=== PATIENT | male | born 1965 | race African-American/Black ===

== ENCOUNTER 2017-10-27 14:22 | Emergency (ER) | payer OTHER ==
[~2017-10-27] VITALS: Ht 185.4 cm; Wt 109.1 kg
[2017-10-27] MEDS ORDERED: IBUPROFEN 600 MG TABLET PO ONE (15:15)
[2017-10-27] MEDS ORDERED: TERBINAFINE HCL 1% 30 GM CREAM TP ONE (15:15)
[2017-10-27 17:07] VITALS: BP 132/84
== END 2017-10-27 17:08 | disposition home or self-care (01) ==
LOC: EMS 14:23
DX: L84 Corns and callosities (principal); F99 Mental disorder, not otherwise specified; J45.909 Unspecified asthma, uncomplicated
CPT/HCPCS: 99283

== ENCOUNTER 2017-11-13 09:36 | Inpatient (IN) | payer MEDICAID, OTHER ==
[~2017-11-13] VITALS: Ht 185.4 cm; Wt 88.1 kg
[2017-11-13 10:25] LABS: AMPHET/METH SCREEN,URINE NEGATIVE (NEGATIVE); BARBITURATE SCREEN, URINE NEGATIVE (NEGATIVE); BENZODIAZEPINES SCREEN,URINE NEGATIVE (NEGATIVE); CANNABINOID SCREEN,URINE NEGATIVE (NEGATIVE); COCAINE SCREEN,URINE NEGATIVE (NEGATIVE); METHADONE SCREEN, URINE NEGATIVE (NEGATIVE); OPIATE SCREEN,URINE NEGATIVE (NEGATIVE); PHENCYCLIDINE SCREEN,URINE NEGATIVE (NEGATIVE)
[2017-11-13] MEDS ORDERED: LORazepam 2 MG TABLET PO ONE (11:15)
[2017-11-13] MEDS ORDERED: HALOPERIDOL 5 MG TABLET PO ONE (11:15)
[2017-11-13] MEDS: DiphenhydrAMINE HCL 50 MG CAPSULE PO ONE ×2 (11:31→11:38)
[2017-11-13] MEDS ORDERED: ZOLPIDEM TARTRATE 10 MG TABLET PO PRN (11:45)
[2017-11-13 15:58] LABS: APPEARANCE,URINE CLEAR (CLEAR)
[2017-11-13 16:00] LABS: BILIRUBIN,URINE NEGATIVE (NEGATIVE); GLUCOSE, URINE (UA) >=1000 mg/dL (NEGATIVE); KETONES,URINE NEGATIVE (NEGATIVE); OCCULT BLOOD,URINE NEGATIVE (NEGATIVE); PROTEIN,URINE NEGATIVE (NEGATIVE)
[2017-11-13 16:01] LABS: LEUKOCYTE ESTERASE ,URINE NEGATIVE (NEGATIVE); NITRATE,URINE NEGATIVE (NEGATIVE); UROBILINOGEN,URINE 0.2 mg/dL (<=1.0)
[2017-11-13 16:27] LABS: BACTERIA,URINE Rare /HPF (None Seen); RBC,URINE None Seen /HPF (0-2); SQUAMOUS EPITHELIAL CELL,UR Few /LPF (None Seen); WBC,URINE 0-2 /HPF (0-5)
[2017-11-13 17:48] VITALS: BP 122/65
[2017-11-13] MEDS ORDERED: INFLUENZA VIRUS VACCINE QVS 2017-18 (3YR+)/PF 60 MCG/0.5 ML SYRINGE IM ONE (19:15)
[2017-11-14 08:30] VITALS: BP 110/69
[2017-11-14] MEDS ORDERED: INSULIN LISPRO 100 UNITS/ML SQ PRN (08:30)
[2017-11-14] MEDS ORDERED: BENZOCAINE/MENTHOL LOZENGE MM PRN (08:30)
[2017-11-14] MEDS ORDERED: CloNIDine HCL 0.1 MG TABLET PO PRN (08:30)
[2017-11-14] MEDS ORDERED: ALBUTEROL SULFATE HFA 90 MCG/PUFF 8 GM INHALER IH PRN (08:30)
[2017-11-14] MEDS ORDERED: MAGNESIUM HYDROXIDE SUSPENSION 30 ML UDCUP PO PRN (08:30)
[2017-11-14] MEDS ORDERED: IBUPROFEN 600 MG TABLET PO PRN (08:30)
[2017-11-14] MEDS ORDERED: DEXTROSE 50%-WATER 25 GM/50 ML SYRINGE IVP PRN (08:30)
[2017-11-14] MEDS ORDERED: ONDANSETRON HCL 4 MG TABLET PO PRN (08:30)
[2017-11-14] MEDS ORDERED: LOPERAMIDE HCL 2 MG CAPSULE PO PRN (08:30)
[2017-11-14] MEDS ORDERED: BACITRACIN 28.4 GM OINTMENT TP PRN (08:30)
[2017-11-14] MEDS ORDERED: ACETAMINOPHEN 325 MG TABLET PO PRN (08:30)
[2017-11-14] MEDS ORDERED: PETROLATUM,WHITE 71 GM JELLY TP PRN (08:30)
[2017-11-14] MEDS ORDERED: MAG HYDROX/AL HYDROX/SIMETH ES 30 ML SUSPENSION UDCUP PO PRN (08:30)
[2017-11-14] MEDS: DOCUSATE SODIUM 100 MG CAPSULE PO SCH (09:16)
[2017-11-14] MEDS: OMEPRAZOLE 20 MG CAPSULE PO SCH (09:17)
[2017-11-14 17:15] VITALS: BP 128/85
[2017-11-14] MEDS: OLANZapine 5 MG TABLET PO SCH (20:31)
[2017-11-14] MEDS: LORazepam 2 MG TABLET PO PRN ×2 (20:37→21:38)
[2017-11-14] MEDS: HALOPERIDOL 5 MG TABLET PO PRN (21:38)
[2017-11-15 08:12] VITALS: BP 137/88
[2017-11-15] MEDS: DOCUSATE SODIUM 100 MG CAPSULE PO SCH (09:00)
[2017-11-15] MEDS: OLANZapine 5 MG TABLET PO SCH ×2 (09:04→20:37)
[2017-11-15] MEDS: OMEPRAZOLE 20 MG CAPSULE PO SCH (09:04)
[2017-11-15] MEDS ORDERED: HALOPERIDOL LACTATE 5 MG/ML VIAL IM PRN (13:45)
[2017-11-15] MEDS: LORazepam 2 MG TABLET PO PRN ×2 (15:26→19:21)
[2017-11-15] MEDS: HALOPERIDOL 5 MG TABLET PO PRN ×2 (15:26→19:21)
[2017-11-15] MEDS: GuaiFENesin/D-METHORPHAN [SUGAR-FREE] 200-20MG/10 ML SYRUP UDCUP PO SCH (15:27)
[2017-11-15 16:00] VITALS: BP 133/71
[2017-11-16] MEDS: GuaiFENesin/D-METHORPHAN [SUGAR-FREE] 200-20MG/10 ML SYRUP UDCUP PO SCH ×3 (00:05→16:11)
[2017-11-16 08:15] VITALS: BP 120/62
[2017-11-16] MEDS: DOCUSATE SODIUM 100 MG CAPSULE PO SCH (09:00)
[2017-11-16] MEDS: OMEPRAZOLE 20 MG CAPSULE PO SCH (09:13)
[2017-11-16] MEDS: OLANZapine 5 MG TABLET PO SCH ×2 (09:13→20:10)
[2017-11-16] MEDS ORDERED: TUBERCULIN, PURIFIED PROTEIN DERIVATIVE 5 TU/0.1 ML SYG ID ONE ×2 (15:30→15:45)
[2017-11-16 16:22] LABS: GLUCOMETER DEV NAME(LOC) 3EC; GLUCOSE,POINT OF CARE 357 MG/DL (70-110)
[2017-11-17 08:00] VITALS: BP 134/67
[2017-11-17] MEDS: GuaiFENesin/D-METHORPHAN [SUGAR-FREE] 200-20MG/10 ML SYRUP UDCUP PO SCH ×4 (08:29→23:48)
[2017-11-17] MEDS: DOCUSATE SODIUM 100 MG CAPSULE PO SCH ×2 (08:30→09:00)
[2017-11-17] MEDS: OLANZapine 5 MG TABLET PO SCH (08:30)
[2017-11-17] MEDS: OMEPRAZOLE 20 MG CAPSULE PO SCH (08:30)
[2017-11-17] MEDS ORDERED: OLANZapine 7.5 MG TABLET PO ONE (09:30)
[2017-11-17] MEDS: BENZTROPINE MESYLATE 1 MG TABLET PO SCH ×2 (09:30→20:23)
[2017-11-17] MEDS: OLANZapine 10 MG TABLET PO SCH (20:24)
[2017-11-18 09:00] VITALS: BP 120/75
[2017-11-18] MEDS: OMEPRAZOLE 20 MG CAPSULE PO SCH (10:00)
[2017-11-18] MEDS: BENZTROPINE MESYLATE 1 MG TABLET PO SCH ×2 (10:00→20:11)
[2017-11-18] MEDS: OLANZapine 10 MG TABLET PO SCH ×2 (10:01→20:11)
[2017-11-18] MEDS: DOCUSATE SODIUM 100 MG CAPSULE PO SCH (10:01)
[2017-11-18] MEDS: GuaiFENesin/D-METHORPHAN [SUGAR-FREE] 200-20MG/10 ML SYRUP UDCUP PO SCH ×2 (10:02→16:13)
[2017-11-18 16:47] VITALS: BP 131/77
[2017-11-19] MEDS: GuaiFENesin/D-METHORPHAN [SUGAR-FREE] 200-20MG/10 ML SYRUP UDCUP PO SCH ×3 (00:05→16:17)
[2017-11-19 08:21] VITALS: BP 155/83
[2017-11-19] MEDS: OMEPRAZOLE 20 MG CAPSULE PO SCH (10:02)
[2017-11-19] MEDS: BENZTROPINE MESYLATE 1 MG TABLET PO SCH ×2 (10:02→20:26)
[2017-11-19] MEDS: DOCUSATE SODIUM 100 MG CAPSULE PO SCH (10:03)
[2017-11-19] MEDS: OLANZapine 10 MG TABLET PO SCH ×2 (10:03→20:25)
[2017-11-19] MEDS ORDERED: DEXTROSE 50%-WATER 25 GM/50 ML SYRINGE IVP PRN (18:45)
[2017-11-19 21:40] VITALS: BP 142/85
[2017-11-20] MEDS: GuaiFENesin/D-METHORPHAN [SUGAR-FREE] 200-20MG/10 ML SYRUP UDCUP PO SCH ×3 (00:09→17:06)
[2017-11-20 08:22] LABS: BASOPHILS % (AUTO) 0.3 % (0.0-2.0); HEMATOCRIT 51.6 % (41-53); LYMPHOCYTES # (AUTO) 3.6 K/uL (1.0-4.8); LYMPHOCYTES % (AUTO) 40.5 % (22.0-44.0); MEAN CORPUSCULAR HEMOGLOBIN 26.9 pg (26.0-34.0); MEAN CORPUSCULAR HGB CONC 32.9 G/dL (31.0-37.0); MEAN CORPUSCULAR VOLUME 82 fL (80-100); MONOCYTES # (AUTO) 0.8 K/uL (0.1-1.0); MONOCYTES % (AUTO) 8.9 % (2.0-9.0); NEUTROPHILS # (AUTO) 4.4 K/uL (1.8-7.7); NEUTROPHILS % (AUTO) 49.3 % (40.0-70.0); PLATELET COUNT (AUTO) 153 K/uL (150-450); RED BLOOD CELL COUNT(AUTO) 6.31 MIL/uL (4.50-5.90); RED CELL DISTRIBUTION WIDTH 12.9 % (11.5-14.5)
[2017-11-20 08:23] LABS: ALANINE AMINOTRANSFERASE 60 U/L (12-78); ALBUMIN 3.4 g/dL (3.4-5.0); ALKALINE PHOSPHATASE 119 U/L (46-116); ANION GAP 10 mmol/L (8-16); ASPARTATE AMINOTRANSFERASE 41 U/L (15-37); BILIRUBIN,TOTAL 0.6 mg/dL (0.1-1.0); CALCIUM, TOTAL 9.1 mg/dL (8.8-10.5); CARBON DIOXIDE 26 mmol/L (22-29); CHLORIDE 94 mmol/L (98-107); CREATININE 0.86 mg/dL (0.60-1.30); GLOMERULAR FILTR. RATE CALC > 60 mL/min (>60); GLUCOSE,RANDOM 275 mg/dL (70-110); PHOSPHORUS 3.5 mg/dL (2.5-4.9); POTASSIUM 4.3 mmol/L (3.5-5.1); SODIUM SERUM 130 mmol/L (136-145); TOTAL PROTEIN, SERUM 8.5 g/dL (6.4-8.2); UREA NITROGEN, BLOOD 18 mg/dL (7-18)
[2017-11-20 08:30] VITALS: BP 133/101
[2017-11-20] MEDS: OMEPRAZOLE 20 MG CAPSULE PO SCH ×2 (09:00→09:25)
[2017-11-20] MEDS: BENZTROPINE MESYLATE 1 MG TABLET PO SCH ×3 (09:00→21:27)
[2017-11-20] MEDS: DOCUSATE SODIUM 100 MG CAPSULE PO SCH ×2 (09:00→09:25)
[2017-11-20] MEDS: OLANZapine 10 MG TABLET PO SCH ×2 (09:25→21:28)
[2017-11-20 09:32] LABS: HEMOGLOBIN A1C 11.1 % (4.5-6.2)
[2017-11-20] MEDS: SODIUM CHLORIDE 1 GM TABLET PO SCH ×2 (11:16→17:05)
[2017-11-20 16:00] VITALS: BP 136/82
[2017-11-21 08:00] VITALS: BP 122/67
[2017-11-21] MEDS: BENZTROPINE MESYLATE 1 MG TABLET PO SCH ×3 (09:00→20:13)
[2017-11-21] MEDS: OMEPRAZOLE 20 MG CAPSULE PO SCH ×2 (09:00→09:56)
[2017-11-21] MEDS: DOCUSATE SODIUM 100 MG CAPSULE PO SCH ×2 (09:00→09:56)
[2017-11-21] MEDS: OLANZapine 10 MG TABLET PO SCH ×3 (09:00→11:41)
[2017-11-21] MEDS: SODIUM CHLORIDE 1 GM TABLET PO SCH ×2 (09:55→17:38)
[2017-11-21] MEDS: INSULIN LISPRO 100 UNITS/ML SQ PRN (13:54)
[2017-11-21 16:29] VITALS: BP 125/74
[2017-11-22] MEDS: OMEPRAZOLE 20 MG CAPSULE PO SCH (08:57)
[2017-11-22] MEDS: BENZTROPINE MESYLATE 1 MG TABLET PO SCH ×2 (08:57→21:06)
[2017-11-22] MEDS: SODIUM CHLORIDE 1 GM TABLET PO SCH ×2 (08:57→16:49)
[2017-11-22] MEDS: OLANZapine 10 MG TABLET PO SCH ×2 (08:58→21:05)
[2017-11-22] MEDS: DOCUSATE SODIUM 100 MG CAPSULE PO SCH (09:00)
[2017-11-22 10:41] VITALS: BP 141/86
[2017-11-22] MEDS: INSULIN LISPRO 100 UNITS/ML SQ PRN (13:11)
[2017-11-22 16:27] VITALS: BP 123/71
[2017-11-22] MEDS: MetFORMIN HCL 500 MG TABLET PO SCH (17:30)
[2017-11-23] MEDS: MetFORMIN HCL 500 MG TABLET PO SCH ×2 (07:10→16:05)
[2017-11-23] MEDS: BENZTROPINE MESYLATE 1 MG TABLET PO SCH ×2 (08:37→21:31)
[2017-11-23] MEDS: OMEPRAZOLE 20 MG CAPSULE PO SCH (08:37)
[2017-11-23] MEDS: OLANZapine 10 MG TABLET PO SCH ×2 (08:38→21:31)
[2017-11-23] MEDS: SODIUM CHLORIDE 1 GM TABLET PO SCH (08:38)
[2017-11-23 08:46] VITALS: BP 121/76
[2017-11-23] MEDS: DOCUSATE SODIUM 100 MG CAPSULE PO SCH (09:00)
[2017-11-23] MEDS: HALOPERIDOL 5 MG TABLET PO PRN (09:28)
[2017-11-23] MEDS: LORazepam 2 MG TABLET PO PRN (09:28)
[2017-11-23 11:53] LABS: GLUCOMETER DEV NAME(LOC) 3EC; GLUCOSE,POINT OF CARE 435 MG/DL (70-110)
[2017-11-23] MEDS: INSULIN LISPRO 100 UNITS/ML SQ PRN (12:11)
[2017-11-23] MEDS ORDERED: INSULIN LISPRO 100 UNITS/ML SQ ONE (12:15)
[2017-11-23 16:00] VITALS: BP 122/78
[2017-11-24 06:42] LABS: GLUCOMETER DEV NAME(LOC) 3EC; GLUCOSE,POINT OF CARE 268 MG/DL (70-110)
[2017-11-24] MEDS: MetFORMIN HCL 500 MG TABLET PO SCH ×2 (06:58→17:40)
[2017-11-24] MEDS: INSULIN LISPRO 100 UNITS/ML SQ PRN ×4 (07:04→20:40)
[2017-11-24] MEDS: HALOPERIDOL 5 MG TABLET PO PRN (08:05)
[2017-11-24] MEDS: BENZTROPINE MESYLATE 1 MG TABLET PO SCH ×2 (08:05→20:19)
[2017-11-24] MEDS: DOCUSATE SODIUM 100 MG CAPSULE PO SCH (08:05)
[2017-11-24] MEDS: LORazepam 2 MG TABLET PO PRN (08:05)
[2017-11-24] MEDS: OMEPRAZOLE 20 MG CAPSULE PO SCH (08:05)
[2017-11-24] MEDS: OLANZapine 10 MG TABLET PO SCH ×2 (08:05→20:19)
[2017-11-24 08:51] VITALS: BP 131/80
[2017-11-24 11:48] LABS: GLUCOMETER DEV NAME(LOC) 3EC; GLUCOSE,POINT OF CARE 397 MG/DL (70-110)
[2017-11-24 17:32] LABS: GLUCOMETER DEV NAME(LOC) 3EC; GLUCOSE,POINT OF CARE 228 MG/DL (70-110)
[2017-11-24 20:18] LABS: GLUCOMETER DEV NAME(LOC) 3EC; GLUCOSE,POINT OF CARE 279 MG/DL (70-110)
[2017-11-24 21:27] VITALS: BP 141/85
[2017-11-25] MEDS: MetFORMIN HCL 500 MG TABLET PO SCH ×2 (06:47→17:44)
[2017-11-25] MEDS: HALOPERIDOL 5 MG TABLET PO PRN (07:38)
[2017-11-25] MEDS: DOCUSATE SODIUM 100 MG CAPSULE PO SCH (07:39)
[2017-11-25] MEDS: OMEPRAZOLE 20 MG CAPSULE PO SCH (07:39)
[2017-11-25] MEDS: OLANZapine 10 MG TABLET PO SCH ×2 (07:39→20:36)
[2017-11-25] MEDS: BENZTROPINE MESYLATE 1 MG TABLET PO SCH ×2 (07:40→20:34)
[2017-11-25 08:06] VITALS: BP 125/82
[2017-11-25] MEDS: INSULIN LISPRO 100 UNITS/ML SQ PRN (12:25)
[2017-11-25 12:27] LABS: GLUCOMETER DEV NAME(LOC) 3EC; GLUCOSE,POINT OF CARE 318 MG/DL (70-110)
[2017-11-25 18:17] VITALS: BP 132/79
[2017-11-25 20:42] LABS: GLUCOMETER DEV NAME(LOC) 3EC; GLUCOSE,POINT OF CARE 275 MG/DL (70-110)
[2017-11-26] MEDS: MetFORMIN HCL 500 MG TABLET PO SCH ×2 (06:48→17:41)
[2017-11-26 08:26] VITALS: BP 109/70
[2017-11-26] MEDS: BENZTROPINE MESYLATE 1 MG TABLET PO SCH ×2 (09:02→20:07)
[2017-11-26] MEDS: DOCUSATE SODIUM 100 MG CAPSULE PO SCH (09:02)
[2017-11-26] MEDS: OLANZapine 10 MG TABLET PO SCH ×2 (09:02→20:07)
[2017-11-26] MEDS: OMEPRAZOLE 20 MG CAPSULE PO SCH (09:03)
[2017-11-26 11:22] LABS: GLUCOMETER DEV NAME(LOC) 3EC; GLUCOSE,POINT OF CARE 322 MG/DL (70-110)
[2017-11-26] MEDS: INSULIN LISPRO 100 UNITS/ML SQ PRN ×3 (11:35→21:28)
[2017-11-26 15:57] LABS: GLUCOMETER DEV NAME(LOC) 3EC; GLUCOSE,POINT OF CARE 316 MG/DL (70-110)
[2017-11-26 16:30] VITALS: BP 133/79
[2017-11-26 20:03] LABS: GLUCOMETER DEV NAME(LOC) 3EC; GLUCOSE,POINT OF CARE 280 MG/DL (70-110)
[2017-11-27 06:12] LABS: GLUCOMETER DEV NAME(LOC) 3EC; GLUCOSE,POINT OF CARE 304 MG/DL (70-110)
[2017-11-27] MEDS: MetFORMIN HCL 500 MG TABLET PO SCH ×2 (07:04→17:24)
[2017-11-27] MEDS: INSULIN LISPRO 100 UNITS/ML SQ PRN ×4 (07:05→22:16)
[2017-11-27] MEDS: BENZTROPINE MESYLATE 1 MG TABLET PO SCH ×2 (08:48→22:13)
[2017-11-27] MEDS: OMEPRAZOLE 20 MG CAPSULE PO SCH (08:48)
[2017-11-27] MEDS: OLANZapine 10 MG TABLET PO SCH ×2 (08:48→22:13)
[2017-11-27] MEDS: DOCUSATE SODIUM 100 MG CAPSULE PO SCH (08:48)
[2017-11-27 09:03] VITALS: BP 128/79
[2017-11-27 13:37] LABS: GLUCOMETER DEV NAME(LOC) 3EI B; GLUCOSE,POINT OF CARE 369 MG/DL (70-110)
[2017-11-27 18:44] LABS: GLUCOMETER DEV NAME(LOC) 3EI B; GLUCOSE,POINT OF CARE 298 MG/DL (70-110)
[2017-11-27 22:19] LABS: GLUCOMETER DEV NAME(LOC) 3EC; GLUCOSE,POINT OF CARE 283 MG/DL (70-110)
[2017-11-28] MEDS: MetFORMIN HCL 500 MG TABLET PO SCH ×2 (07:05→17:29)
[2017-11-28 08:05] VITALS: BP 126/69
[2017-11-28] MEDS: BENZTROPINE MESYLATE 1 MG TABLET PO SCH ×2 (08:26→20:06)
[2017-11-28] MEDS: DOCUSATE SODIUM 100 MG CAPSULE PO SCH ×2 (08:26→08:28)
[2017-11-28] MEDS: OMEPRAZOLE 20 MG CAPSULE PO SCH (08:26)
[2017-11-28] MEDS: OLANZapine 10 MG TABLET PO SCH ×2 (08:27→20:06)
[2017-11-28 11:37] LABS: GLUCOMETER DEV NAME(LOC) 3EC; GLUCOSE,POINT OF CARE 281 MG/DL (70-110)
[2017-11-28 11:53] LABS: GLUCOMETER DEV NAME(LOC) 3EC; GLUCOSE,POINT OF CARE 92 MG/DL (70-110)
[2017-11-28] MEDS: INSULIN LISPRO 100 UNITS/ML SQ PRN ×3 (11:56→22:10)
[2017-11-28 17:37] LABS: GLUCOMETER DEV NAME(LOC) 3EC; GLUCOSE,POINT OF CARE 343 MG/DL (70-110)
[2017-11-28 19:14] VITALS: BP 124/75
[2017-11-28 20:17] LABS: GLUCOMETER DEV NAME(LOC) 3EC; GLUCOSE,POINT OF CARE 331 MG/DL (70-110)
[2017-11-29] MEDS: MetFORMIN HCL 500 MG TABLET PO SCH ×2 (06:59→17:27)
[2017-11-29 08:30] VITALS: BP 123/78
[2017-11-29] MEDS: OLANZapine 10 MG TABLET PO SCH ×2 (08:46→20:30)
[2017-11-29] MEDS: DOCUSATE SODIUM 100 MG CAPSULE PO SCH ×2 (08:46→08:49)
[2017-11-29] MEDS: BENZTROPINE MESYLATE 1 MG TABLET PO SCH ×2 (08:46→20:30)
[2017-11-29] MEDS: OMEPRAZOLE 20 MG CAPSULE PO SCH (08:46)
[2017-11-29 11:22] LABS: GLUCOMETER DEV NAME(LOC) 3EC; GLUCOSE,POINT OF CARE 246 MG/DL (70-110)
[2017-11-29] MEDS: INSULIN LISPRO 100 UNITS/ML SQ PRN ×2 (11:41→17:34)
[2017-11-29 16:37] VITALS: BP 123/75
[2017-11-29 17:37] LABS: GLUCOMETER DEV NAME(LOC) 3EC; GLUCOSE,POINT OF CARE 274 MG/DL (70-110)
[2017-11-29 20:17] LABS: GLUCOMETER DEV NAME(LOC) 3EC; GLUCOSE,POINT OF CARE 110 MG/DL (70-110)
[2017-11-30 06:22] LABS: GLUCOMETER DEV NAME(LOC) 3EC; GLUCOSE,POINT OF CARE 223 MG/DL (70-110)
[2017-11-30] MEDS: INSULIN LISPRO 100 UNITS/ML SQ PRN ×4 (07:00→21:30)
[2017-11-30] MEDS: MetFORMIN HCL 500 MG TABLET PO SCH ×2 (07:01→17:44)
[2017-11-30 08:33] VITALS: BP 133/76
[2017-11-30] MEDS: BENZTROPINE MESYLATE 1 MG TABLET PO SCH ×2 (08:54→20:25)
[2017-11-30] MEDS: OMEPRAZOLE 20 MG CAPSULE PO SCH (08:54)
[2017-11-30] MEDS: OLANZapine 10 MG TABLET PO SCH ×2 (08:54→20:26)
[2017-11-30] MEDS: DOCUSATE SODIUM 100 MG CAPSULE PO SCH (09:00)
[2017-11-30 11:27] LABS: GLUCOMETER DEV NAME(LOC) 3EC; GLUCOSE,POINT OF CARE 248 MG/DL (70-110)
[2017-11-30 16:00] VITALS: BP 126/76
[2017-11-30 17:42] LABS: GLUCOMETER DEV NAME(LOC) 3EC; GLUCOSE,POINT OF CARE 287 MG/DL (70-110)
[2017-11-30 20:34] LABS: GLUCOMETER DEV NAME(LOC) 3EC; GLUCOSE,POINT OF CARE 340 MG/DL (70-110)
[2017-12-01] MEDS: MetFORMIN HCL 500 MG TABLET PO SCH ×2 (06:43→18:04)
[2017-12-01] MEDS: OLANZapine 10 MG TABLET PO SCH ×2 (08:50→20:35)
[2017-12-01] MEDS: DOCUSATE SODIUM 100 MG CAPSULE PO SCH (08:51)
[2017-12-01] MEDS: OMEPRAZOLE 20 MG CAPSULE PO SCH (08:51)
[2017-12-01] MEDS: BENZTROPINE MESYLATE 1 MG TABLET PO SCH ×2 (08:51→20:34)
[2017-12-01 10:48] VITALS: BP 103/63
[2017-12-01 11:17] LABS: GLUCOMETER DEV NAME(LOC) 3EC; GLUCOSE,POINT OF CARE 313 MG/DL (70-110)
[2017-12-01] MEDS: INSULIN LISPRO 100 UNITS/ML SQ PRN ×3 (11:41→21:32)
[2017-12-01 16:44] VITALS: BP 130/78
[2017-12-01 17:18] LABS: GLUCOMETER DEV NAME(LOC) 3EC; GLUCOSE,POINT OF CARE 249 MG/DL (70-110)
[2017-12-01 20:57] LABS: GLUCOMETER DEV NAME(LOC) 3EC; GLUCOSE,POINT OF CARE 314 MG/DL (70-110)
[2017-12-02 06:22] LABS: GLUCOMETER DEV NAME(LOC) 3EC; GLUCOSE,POINT OF CARE 266 MG/DL (70-110)
[2017-12-02] MEDS: MetFORMIN HCL 500 MG TABLET PO SCH ×2 (07:04→17:19)
[2017-12-02] MEDS: INSULIN LISPRO 100 UNITS/ML SQ PRN ×4 (07:10→21:32)
[2017-12-02 08:05] VITALS: BP 109/73
[2017-12-02] MEDS: BENZTROPINE MESYLATE 1 MG TABLET PO SCH ×2 (09:24→20:53)
[2017-12-02] MEDS: OMEPRAZOLE 20 MG CAPSULE PO SCH (09:24)
[2017-12-02] MEDS: OLANZapine 10 MG TABLET PO SCH ×2 (09:24→20:53)
[2017-12-02 11:12] LABS: GLUCOMETER DEV NAME(LOC) 3EC; GLUCOSE,POINT OF CARE 191 MG/DL (70-110)
[2017-12-02 17:27] LABS: GLUCOMETER DEV NAME(LOC) 3EC; GLUCOSE,POINT OF CARE 202 MG/DL (70-110)
[2017-12-02 20:42] LABS: GLUCOMETER DEV NAME(LOC) 3EC; GLUCOSE,POINT OF CARE 317 MG/DL (70-110)
[2017-12-03 06:37] LABS: GLUCOMETER DEV NAME(LOC) 3EC; GLUCOSE,POINT OF CARE 208 MG/DL (70-110)
[2017-12-03] MEDS: MetFORMIN HCL 500 MG TABLET PO SCH ×2 (06:52→17:48)
[2017-12-03] MEDS: INSULIN LISPRO 100 UNITS/ML SQ PRN ×4 (06:56→22:09)
[2017-12-03] MEDS: OMEPRAZOLE 20 MG CAPSULE PO SCH (07:53)
[2017-12-03] MEDS: OLANZapine 10 MG TABLET PO SCH ×2 (07:53→20:24)
[2017-12-03] MEDS: BENZTROPINE MESYLATE 1 MG TABLET PO SCH ×2 (07:53→20:24)
[2017-12-03 08:00] VITALS: BP_SYST 102; BP_SYST 118; BP_DIAS 66; BP_DIAS 80
[2017-12-03 11:38] LABS: GLUCOMETER DEV NAME(LOC) 3EC; GLUCOSE,POINT OF CARE 205 MG/DL (70-110)
[2017-12-03 16:59] VITALS: BP 108/78
[2017-12-03 17:37] LABS: GLUCOMETER DEV NAME(LOC) 3EC; GLUCOSE,POINT OF CARE 167 MG/DL (70-110)
[2017-12-03 20:43] LABS: GLUCOMETER DEV NAME(LOC) 3EC; GLUCOSE,POINT OF CARE 217 MG/DL (70-110)
[2017-12-04 06:28] LABS: GLUCOMETER DEV NAME(LOC) 3EC; GLUCOSE,POINT OF CARE 232 MG/DL (70-110)
[2017-12-04] MEDS: INSULIN LISPRO 100 UNITS/ML SQ PRN ×4 (07:06→21:43)
[2017-12-04] MEDS: MetFORMIN HCL 500 MG TABLET PO SCH ×2 (07:06→17:37)
[2017-12-04 08:31] VITALS: BP 110/61
[2017-12-04] MEDS: OMEPRAZOLE 20 MG CAPSULE PO SCH (10:25)
[2017-12-04] MEDS: BENZTROPINE MESYLATE 1 MG TABLET PO SCH ×2 (10:25→21:32)
[2017-12-04] MEDS: OLANZapine 10 MG TABLET PO SCH ×2 (10:25→21:32)
[2017-12-04 12:02] LABS: GLUCOMETER DEV NAME(LOC) 3EC; GLUCOSE,POINT OF CARE 247 MG/DL (70-110)
[2017-12-04 16:00] VITALS: BP 123/82
[2017-12-04 17:47] LABS: GLUCOMETER DEV NAME(LOC) 3EC; GLUCOSE,POINT OF CARE 247 MG/DL (70-110)
[2017-12-04 21:42] LABS: GLUCOMETER DEV NAME(LOC) 3EC; GLUCOSE,POINT OF CARE 234 MG/DL (70-110)
[2017-12-05] MEDS: MetFORMIN HCL 500 MG TABLET PO SCH ×2 (07:01→17:24)
[2017-12-05] MEDS: OMEPRAZOLE 20 MG CAPSULE PO SCH (08:05)
[2017-12-05] MEDS: OLANZapine 10 MG TABLET PO SCH ×2 (08:05→21:09)
[2017-12-05] MEDS: BENZTROPINE MESYLATE 1 MG TABLET PO SCH ×2 (08:05→21:09)
[2017-12-05 08:26] VITALS: BP 126/92
[2017-12-05 11:48] LABS: GLUCOMETER DEV NAME(LOC) 3EC; GLUCOSE,POINT OF CARE 249 MG/DL (70-110)
[2017-12-05] MEDS: INSULIN LISPRO 100 UNITS/ML SQ PRN ×3 (12:21→22:07)
[2017-12-05 17:38] LABS: GLUCOMETER DEV NAME(LOC) 3EC; GLUCOSE,POINT OF CARE 188 MG/DL (70-110)
[2017-12-05 19:47] VITALS: BP 125/73
[2017-12-05 21:17] LABS: GLUCOMETER DEV NAME(LOC) 3EC; GLUCOSE,POINT OF CARE 255 MG/DL (70-110)
[2017-12-06 06:17] LABS: GLUCOMETER DEV NAME(LOC) 3EC; GLUCOSE,POINT OF CARE 177 MG/DL (70-110)
[2017-12-06] MEDS: MetFORMIN HCL 500 MG TABLET PO SCH ×2 (07:08→17:48)
[2017-12-06] MEDS: INSULIN LISPRO 100 UNITS/ML SQ PRN ×4 (07:09→21:40)
[2017-12-06] MEDS: OMEPRAZOLE 20 MG CAPSULE PO SCH (08:31)
[2017-12-06] MEDS: BENZTROPINE MESYLATE 1 MG TABLET PO SCH ×2 (08:31→21:17)
[2017-12-06] MEDS: OLANZapine 10 MG TABLET PO SCH ×2 (08:32→21:16)
[2017-12-06 09:00] VITALS: BP 127/81
[2017-12-06 11:42] LABS: GLUCOMETER DEV NAME(LOC) 3EC; GLUCOSE,POINT OF CARE 256 MG/DL (70-110)
[2017-12-06 16:49] VITALS: BP 127/73
[2017-12-06 17:17] LABS: GLUCOMETER DEV NAME(LOC) 3EC; GLUCOSE,POINT OF CARE 219 MG/DL (70-110)
[2017-12-06 21:58] LABS: GLUCOMETER DEV NAME(LOC) 3EC; GLUCOSE,POINT OF CARE 226 MG/DL (70-110)
[2017-12-07] MEDS: MetFORMIN HCL 500 MG TABLET PO SCH ×2 (07:15→17:36)
[2017-12-07] MEDS: INSULIN LISPRO 100 UNITS/ML SQ PRN ×4 (07:17→21:37)
[2017-12-07 07:27] LABS: GLUCOMETER DEV NAME(LOC) 3EC; GLUCOSE,POINT OF CARE 188 MG/DL (70-110)
[2017-12-07] MEDS: BENZTROPINE MESYLATE 1 MG TABLET PO SCH ×2 (07:45→21:32)
[2017-12-07] MEDS: OMEPRAZOLE 20 MG CAPSULE PO SCH (07:45)
[2017-12-07] MEDS: OLANZapine 10 MG TABLET PO SCH ×2 (07:46→21:32)
[2017-12-07 08:00] VITALS: BP 127/78
[2017-12-07 11:58] LABS: GLUCOMETER DEV NAME(LOC) 3EC; GLUCOSE,POINT OF CARE 311 MG/DL (70-110)
[2017-12-07 17:43] LABS: GLUCOMETER DEV NAME(LOC) 3EC; GLUCOSE,POINT OF CARE 218 MG/DL (70-110)
[2017-12-07 22:08] LABS: GLUCOMETER DEV NAME(LOC) 3EC; GLUCOSE,POINT OF CARE 244 MG/DL (70-110)
[2017-12-08 06:23] LABS: GLUCOMETER DEV NAME(LOC) 3EC; GLUCOSE,POINT OF CARE 256 MG/DL (70-110)
[2017-12-08] MEDS: MetFORMIN HCL 500 MG TABLET PO SCH ×2 (06:40→17:04)
[2017-12-08] MEDS: INSULIN LISPRO 100 UNITS/ML SQ PRN ×4 (06:41→20:41)
[2017-12-08 08:00] VITALS: BP 126/75
[2017-12-08] MEDS: OMEPRAZOLE 20 MG CAPSULE PO SCH (10:02)
[2017-12-08] MEDS: DOCUSATE SODIUM 100 MG CAPSULE PO PRN (10:02)
[2017-12-08] MEDS: BENZTROPINE MESYLATE 1 MG TABLET PO SCH ×2 (10:03→20:24)
[2017-12-08] MEDS: OLANZapine 10 MG TABLET PO SCH ×2 (10:03→20:24)
[2017-12-08 11:38] LABS: GLUCOMETER DEV NAME(LOC) 3EC; GLUCOSE,POINT OF CARE 248 MG/DL (70-110)
[2017-12-08 16:47] LABS: GLUCOMETER DEV NAME(LOC) 3EC; GLUCOSE,POINT OF CARE 209 MG/DL (70-110)
[2017-12-08 20:33] LABS: GLUCOMETER DEV NAME(LOC) 3EC; GLUCOSE,POINT OF CARE 212 MG/DL (70-110)
[2017-12-08 22:40] VITALS: BP 128/73
[2017-12-09 06:17] LABS: GLUCOMETER DEV NAME(LOC) 3EC; GLUCOSE,POINT OF CARE 237 MG/DL (70-110)
[2017-12-09] MEDS: MetFORMIN HCL 500 MG TABLET PO SCH ×2 (06:47→17:37)
[2017-12-09] MEDS: INSULIN LISPRO 100 UNITS/ML SQ PRN ×4 (06:48→21:38)
[2017-12-09 08:10] VITALS: BP 131/64
[2017-12-09] MEDS: OMEPRAZOLE 20 MG CAPSULE PO SCH (08:17)
[2017-12-09] MEDS: OLANZapine 10 MG TABLET PO SCH ×2 (08:17→20:10)
[2017-12-09] MEDS: BENZTROPINE MESYLATE 1 MG TABLET PO SCH ×2 (08:17→20:09)
[2017-12-09 11:52] LABS: GLUCOMETER DEV NAME(LOC) 3EC; GLUCOSE,POINT OF CARE 188 MG/DL (70-110)
[2017-12-09 16:00] VITALS: BP 132/68
[2017-12-09 17:43] LABS: GLUCOMETER DEV NAME(LOC) 3EC; GLUCOSE,POINT OF CARE 146 MG/DL (70-110)
[2017-12-09 20:17] LABS: GLUCOMETER DEV NAME(LOC) 3EC; GLUCOSE,POINT OF CARE 205 MG/DL (70-110)
[2017-12-10 06:43] LABS: GLUCOMETER DEV NAME(LOC) 3EC; GLUCOSE,POINT OF CARE 270 MG/DL (70-110)
[2017-12-10] MEDS: MetFORMIN HCL 500 MG TABLET PO SCH ×2 (06:49→17:37)
[2017-12-10] MEDS: INSULIN LISPRO 100 UNITS/ML SQ PRN ×4 (07:02→21:19)
[2017-12-10 08:00] VITALS: BP 132/91
[2017-12-10] MEDS: OMEPRAZOLE 20 MG CAPSULE PO SCH (08:12)
[2017-12-10] MEDS: OLANZapine 10 MG TABLET PO SCH ×2 (08:12→21:03)
[2017-12-10] MEDS: BENZTROPINE MESYLATE 1 MG TABLET PO SCH ×2 (08:12→21:03)
[2017-12-10 11:47] LABS: GLUCOMETER DEV NAME(LOC) 3EC; GLUCOSE,POINT OF CARE 196 MG/DL (70-110)
[2017-12-10] MEDS: GlipiZIDE 10 MG TABLET PO SCH (17:37)
[2017-12-10 17:43] LABS: GLUCOMETER DEV NAME(LOC) 3EC; GLUCOSE,POINT OF CARE 229 MG/DL (70-110)
[2017-12-10 21:18] LABS: GLUCOMETER DEV NAME(LOC) 3EC; GLUCOSE,POINT OF CARE 232 MG/DL (70-110)
[2017-12-11 06:33] LABS: GLUCOMETER DEV NAME(LOC) 3EC; GLUCOSE,POINT OF CARE 195 MG/DL (70-110)
[2017-12-11] MEDS: INSULIN LISPRO 100 UNITS/ML SQ PRN ×4 (06:41→21:04)
[2017-12-11 06:59] LABS: BAND NEUTROPHILS % (MANUAL) 0 % (0-5)
[2017-12-11] MEDS: GlipiZIDE 10 MG TABLET PO SCH ×2 (07:01→17:02)
[2017-12-11] MEDS: MetFORMIN HCL 500 MG TABLET PO SCH ×2 (07:01→17:01)
[2017-12-11 07:13] LABS: HEMATOCRIT 45.9 % (41-53); HEMOGLOBIN 15.1 g/dL (13.5-17.5); MEAN CORPUSCULAR HEMOGLOBIN 26.8 pg (26.0-34.0); MEAN CORPUSCULAR VOLUME 81 fL (80-100); PLATELET COUNT (AUTO) 271 K/uL (150-450); RED BLOOD CELL COUNT(AUTO) 5.65 MIL/uL (4.50-5.90); RED CELL DISTRIBUTION WIDTH 12.7 % (11.5-14.5)
[2017-12-11 07:36] LABS: HEMOGLOBIN A1C 10.6 % (4.5-6.2)
[2017-12-11 07:49] LABS: ANION GAP 6 mmol/L (8-16); CALCIUM, TOTAL 8.7 mg/dL (8.8-10.5); CARBON DIOXIDE 30 mmol/L (22-29); CHLORIDE 99 mmol/L (98-107); CHOL/HDL RATIO 2.9 (4.2-7.3); CHOLESTEROL 93 mg/dL (131-200); CREATININE 0.83 mg/dL (0.60-1.30); GLOMERULAR FILTR. RATE CALC > 60 mL/min (>60); GLUCOSE,RANDOM 181 mg/dL (70-110); HDL CHOLESTEROL 32 mg/dL (40-60); LDL CHOL (CALC.) 33 mg/dL (0-130); PHOSPHORUS 4.2 mg/dL (2.5-4.9); POTASSIUM 4.1 mmol/L (3.5-5.1); SODIUM SERUM 135 mmol/L (136-145); THYROID STIMULATING HORMONE 0.94 uIU/mL (0.36-3.74); TRIGLYCERIDES 138 mg/dL (15-150); UREA NITROGEN, BLOOD 15 mg/dL (7-18)
[2017-12-11 08:00] VITALS: BP 132/79
[2017-12-11] MEDS: OMEPRAZOLE 20 MG CAPSULE PO SCH (08:17)
[2017-12-11] MEDS: BENZTROPINE MESYLATE 1 MG TABLET PO SCH ×2 (08:17→20:39)
[2017-12-11] MEDS: OLANZapine 10 MG TABLET PO SCH ×2 (08:17→20:39)
[2017-12-11 10:07] LABS: LYMPHOCYTES % (MANUAL) 52 % (22-44); MONOCYTES % (MANUAL) 12 % (2-9); SEGMENTED NEUTROPHILS % 36 % (40-70)
[2017-12-11 11:23] LABS: GLUCOMETER DEV NAME(LOC) 3EC; GLUCOSE,POINT OF CARE 314 MG/DL (70-110)
[2017-12-11 17:42] LABS: GLUCOMETER DEV NAME(LOC) 3EC; GLUCOSE,POINT OF CARE 213 MG/DL (70-110)
[2017-12-11] MEDS: SODIUM CHLORIDE 1 GM TABLET PO SCH (20:39)
[2017-12-11 20:48] LABS: GLUCOMETER DEV NAME(LOC) 3EC; GLUCOSE,POINT OF CARE 226 MG/DL (70-110)
[2017-12-12 06:38] LABS: GLUCOMETER DEV NAME(LOC) 3EC; GLUCOSE,POINT OF CARE 171 MG/DL (70-110)
[2017-12-12] MEDS: INSULIN LISPRO 100 UNITS/ML SQ PRN ×5 (06:52→22:05)
[2017-12-12] MEDS: GlipiZIDE 10 MG TABLET PO SCH ×2 (06:53→16:39)
[2017-12-12] MEDS: MetFORMIN HCL 500 MG TABLET PO SCH ×2 (06:54→16:39)
[2017-12-12 08:30] VITALS: BP 127/89
[2017-12-12] MEDS: BENZTROPINE MESYLATE 1 MG TABLET PO SCH ×2 (10:00→21:00)
[2017-12-12] MEDS: OLANZapine 10 MG TABLET PO SCH ×2 (10:00→21:00)
[2017-12-12] MEDS: SODIUM CHLORIDE 1 GM TABLET PO SCH ×2 (10:01→16:39)
[2017-12-12] MEDS: OMEPRAZOLE 20 MG CAPSULE PO SCH (10:01)
[2017-12-12] MEDS: DOCUSATE SODIUM 100 MG CAPSULE PO PRN (10:01)
[2017-12-12] MEDS: MAGNESIUM OXIDE 400 MG TABLET PO SCH (10:01)
[2017-12-12] MEDS: CHOLECALCIFEROL (VIT D3) 1,000 UNITS TABLET PO SCH (10:01)
[2017-12-12 12:17] LABS: GLUCOMETER DEV NAME(LOC) 3EC; GLUCOSE,POINT OF CARE 228 MG/DL (70-110)
[2017-12-12 16:00] VITALS: BP 123/87
[2017-12-12 16:48] LABS: GLUCOMETER DEV NAME(LOC) 3EC; GLUCOSE,POINT OF CARE 200 MG/DL (70-110)
[2017-12-12 21:12] LABS: GLUCOMETER DEV NAME(LOC) 3EC; GLUCOSE,POINT OF CARE 204 MG/DL (70-110)
[2017-12-13 06:12] LABS: GLUCOMETER DEV NAME(LOC) 3EC; GLUCOSE,POINT OF CARE 147 MG/DL (70-110)
[2017-12-13] MEDS: GlipiZIDE 10 MG TABLET PO SCH ×2 (06:56→16:32)
[2017-12-13] MEDS: INSULIN LISPRO 100 UNITS/ML SQ PRN ×4 (06:58→21:10)
[2017-12-13] MEDS: MetFORMIN HCL 500 MG TABLET PO SCH ×2 (06:59→16:32)
[2017-12-13] MEDS: OMEPRAZOLE 20 MG CAPSULE PO SCH (08:33)
[2017-12-13] MEDS: CHOLECALCIFEROL (VIT D3) 1,000 UNITS TABLET PO SCH (08:33)
[2017-12-13] MEDS: OLANZapine 10 MG TABLET PO SCH ×2 (08:33→20:22)
[2017-12-13] MEDS: MAGNESIUM OXIDE 400 MG TABLET PO SCH (08:33)
[2017-12-13] MEDS: BENZTROPINE MESYLATE 1 MG TABLET PO SCH ×2 (08:33→20:22)
[2017-12-13 08:36] VITALS: BP 128/87
[2017-12-13 11:28] LABS: GLUCOMETER DEV NAME(LOC) 3EC; GLUCOSE,POINT OF CARE 151 MG/DL (70-110)
[2017-12-13 16:22] LABS: GLUCOMETER DEV NAME(LOC) 3EC; GLUCOSE,POINT OF CARE 187 MG/DL (70-110)
[2017-12-13 16:42] VITALS: BP 148/82
[2017-12-13 20:47] LABS: GLUCOMETER DEV NAME(LOC) 3EC; GLUCOSE,POINT OF CARE 157 MG/DL (70-110)
[2017-12-14 06:23] LABS: GLUCOMETER DEV NAME(LOC) 3EC; GLUCOSE,POINT OF CARE 168 MG/DL (70-110)
[2017-12-14] MEDS: GlipiZIDE 10 MG TABLET PO SCH (06:53)
[2017-12-14] MEDS: INSULIN LISPRO 100 UNITS/ML SQ PRN ×2 (06:56→11:42)
[2017-12-14] MEDS: MetFORMIN HCL 500 MG TABLET PO SCH (06:57)
[2017-12-14] MEDS ORDERED: OLAN10TA20 PO (08:02)
[2017-12-14] MEDS ORDERED: BENZ1TAB10 PO (08:02)
[2017-12-14] MEDS: OMEPRAZOLE 20 MG CAPSULE PO SCH (08:13)
[2017-12-14] MEDS: CHOLECALCIFEROL (VIT D3) 1,000 UNITS TABLET PO SCH (08:13)
[2017-12-14] MEDS: OLANZapine 10 MG TABLET PO SCH (08:13)
[2017-12-14] MEDS: BENZTROPINE MESYLATE 1 MG TABLET PO SCH (08:13)
[2017-12-14] MEDS: MAGNESIUM OXIDE 400 MG TABLET PO SCH (08:13)
[2017-12-14 08:19] VITALS: BP 127/82
[2017-12-14 11:43] LABS: GLUCOMETER DEV NAME(LOC) 3EC; GLUCOSE,POINT OF CARE 208 MG/DL (70-110)
[2017-12-14] MEDS ORDERED: VITAD1000 PO (11:54)
[2017-12-14] MEDS ORDERED: GLIP10 PO (11:55)
[2017-12-14] MEDS ORDERED: METF500T6 PO (11:55)
[2017-12-14] MEDS ORDERED: MAGOX PO (11:55)
== END 2017-12-14 14:30 | disposition home or self-care (01) | DRG 750 ==
LOC: EMS 09:36 → 3EI 14:05 → 3EC 11-14 14:23
DX: F20.0 Paranoid schizophrenia (principal); E11.65 Type 2 diabetes mellitus with hyperglycemia; J45.909 Unspecified asthma, uncomplicated; G47.00 Insomnia, unspecified; R45.87 Impulsiveness; E83.42 Hypomagnesemia; E87.1 Hypo-osmolality and hyponatremia; E55.9 Vitamin D deficiency, unspecified; K59.00 Constipation, unspecified; F17.200 Nicotine dependence, unspecified, uncomplicated; Z71.6 Tobacco abuse counseling; Z91.14 Patient's other noncompliance with medication regimen
CPT/HCPCS: 71046; 82306; 83036; 83735; 84100; 84295; 84443; 85007; 87081; 99285; J1815

== ENCOUNTER 2018-02-18 19:41 | Inpatient (IN) | payer MEDICAID, OTHER ==
[~2018-02-18] VITALS: Ht 185.4 cm; Wt 93.0 kg
[~2018-02-18 19:41] MED LIST: BENZ1TAB10 PO; GLIP10 PO; MAGOX PO; METF500T6 PO; OLAN10TA20 PO; VITAD1000 PO
[2018-02-18 20:18] LABS: GLUCOSE,POINT OF CARE 388 MG/DL (70-110)
[2018-02-18 20:51] LABS: AMPHET/METH SCREEN,URINE NEGATIVE (NEGATIVE); BARBITURATE SCREEN, URINE NEGATIVE (NEGATIVE); BENZODIAZEPINES SCREEN,URINE NEGATIVE (NEGATIVE); CANNABINOID SCREEN,URINE NEGATIVE (NEGATIVE); COCAINE SCREEN,URINE NEGATIVE (NEGATIVE); METHADONE SCREEN, URINE NEGATIVE (NEGATIVE); OPIATE SCREEN,URINE NEGATIVE (NEGATIVE); PHENCYCLIDINE SCREEN,URINE NEGATIVE (NEGATIVE)
[2018-02-18] MEDS ORDERED: ACETAMINOPHEN 500 MG TABLET PO ONE (21:30)
[2018-02-18] MEDS ORDERED: GuaiFENesin/D-METHORPHAN [SUGAR-FREE] 200-20MG/10 ML SYRUP UDCUP PO ONE (21:30)
[2018-02-18] MEDS ORDERED: INSULIN REGULAR, HUMAN 100 UNITS/ML SQ ONE (21:45)
[2018-02-18 21:48] LABS: GLUCOSE,POINT OF CARE 307 MG/DL (70-110)
[2018-02-18] MEDS ORDERED: MetFORMIN HCL 500 MG TABLET PO ONE (22:00)
[2018-02-18 23:58] LABS: GLUCOSE,POINT OF CARE 278 MG/DL (70-110)
[2018-02-19 04:33] LABS: GLUCOSE,POINT OF CARE 239 MG/DL (70-110)
[2018-02-19 10:48] LABS: GLUCOSE,POINT OF CARE 295 MG/DL (70-110)
[2018-02-19] MEDS ORDERED: MetFORMIN HCL 500 MG TABLET PO ONE (12:45)
[2018-02-19] MEDS ORDERED: ZOLPIDEM TARTRATE 10 MG TABLET PO PRN (17:30)
[2018-02-19] MEDS ORDERED: LOPERAMIDE HCL 2 MG CAPSULE PO PRN (17:30)
[2018-02-19] MEDS ORDERED: LORazepam 2 MG TABLET PO PRN (17:30)
[2018-02-19] MEDS ORDERED: ACETAMINOPHEN 325 MG TABLET PO PRN (17:30)
[2018-02-19] MEDS ORDERED: TUBERCULIN, PURIFIED PROTEIN DERIVATIVE 5 TU/0.1 ML SYG ID ONE (17:30)
[2018-02-19] MEDS ORDERED: OLANZapine 5 MG RAPDIS TABLET PO PRN (17:30)
[2018-02-19] MEDS ORDERED: GuaiFENesin/D-METHORPHAN [SUGAR-FREE] 200-20MG/10 ML SYRUP UDCUP PO PRN (17:30)
[2018-02-19] MEDS ORDERED: MAGNESIUM HYDROXIDE SUSPENSION 30 ML UDCUP PO PRN (17:30)
[2018-02-19] MEDS ORDERED: PROMETHAZINE HCL 25 MG TABLET PO PRN (17:30)
[2018-02-19] MEDS ORDERED: HydrOXYzine PAMOATE 50 MG CAPSULE PO PRN (17:30)
[2018-02-19] MEDS ORDERED: MAG HYDROX/AL HYDROX/SIMETH ES 30 ML SUSPENSION UDCUP PO PRN (17:30)
[2018-02-19 19:23] LABS: GLUCOSE,POINT OF CARE 222 MG/DL (70-110)
[2018-02-19] MEDS ORDERED: GLUCAGON,HUMAN RECOMBINANT 1 MG VIAL IM PRN (20:45)
[2018-02-19 20:57] VITALS: BP 128/83
[2018-02-19] MEDS ORDERED: OLANZapine 5 MG RAPDIS TABLET PO SCH (21:00)
[2018-02-19] MEDS ORDERED: DIVALPROEX SODIUM 500 MG ER TABLET PO SCH (21:00)
[2018-02-19] MEDS: THIAMINE HCL 100 MG TABLET PO SCH (21:27)
[2018-02-19] MEDS: DIVALPROEX SODIUM 500 MG ER TABLET PO SCH (21:27)
[2018-02-20 00:22] VITALS: BP 139/63
[2018-02-20 06:58] LABS: GLUCOMETER DEV NAME(LOC) BV3N5; GLUCOSE,POINT OF CARE 222 MG/DL (70-110)
[2018-02-20 08:20] VITALS: BP 110/68
[2018-02-20] MEDS: FOLIC ACID 1 MG TABLET PO SCH (09:00)
[2018-02-20] MEDS: NALTREXONE HCL 50 MG TABLET PO SCH (09:00)
[2018-02-20] MEDS: THIAMINE HCL 100 MG TABLET PO SCH ×2 (09:00→16:43)
[2018-02-20] MEDS: MULTIVITAMINS WITH MINERALS, THERAPEUTIC TABLET PO SCH (09:00)
[2018-02-20 11:49] LABS: GLUCOMETER DEV NAME(LOC) BV3N5; GLUCOSE,POINT OF CARE 238 MG/DL (70-110)
[2018-02-20 16:00] VITALS: BP 113/67
[2018-02-20 17:08] LABS: GLUCOMETER DEV NAME(LOC) BV3N5; GLUCOSE,POINT OF CARE 218 MG/DL (70-110)
[2018-02-20] MEDS: OLANZapine 10 MG RAPDIS TABLET PO SCH (20:37)
[2018-02-20] MEDS: DIVALPROEX SODIUM 500 MG ER TABLET PO SCH (20:37)
[2018-02-20 21:23] LABS: GLUCOMETER DEV NAME(LOC) BV3N5; GLUCOSE,POINT OF CARE 261 MG/DL (70-110)
[2018-02-21 06:19] LABS: GLUCOMETER DEV NAME(LOC) BV3N5; GLUCOSE,POINT OF CARE 210 MG/DL (70-110)
[2018-02-21] MEDS: MetFORMIN HCL 500 MG TABLET PO SCH ×2 (06:32→17:09)
[2018-02-21 06:37] VITALS: BP 106/69
[2018-02-21 08:27] VITALS: BP 116/72
[2018-02-21] MEDS: MULTIVITAMINS WITH MINERALS, THERAPEUTIC TABLET PO SCH (08:53)
[2018-02-21] MEDS: THIAMINE HCL 100 MG TABLET PO SCH ×2 (08:53→17:09)
[2018-02-21] MEDS: FOLIC ACID 1 MG TABLET PO SCH (08:53)
[2018-02-21] MEDS: NALTREXONE HCL 50 MG TABLET PO SCH (08:53)
[2018-02-21 08:58] LABS: BASOPHILS % (AUTO) 0.5 % (0.0-2.0); EOSINOPHILS % (AUTO) 0.9 % (1.0-6.0); HEMOGLOBIN 15.5 g/dL (13.5-17.5); LYMPHOCYTES % (AUTO) 46.3 % (22.0-44.0); MEAN CORPUSCULAR HEMOGLOBIN 26.9 pg (26.0-34.0); MEAN CORPUSCULAR VOLUME 82 fL (80-100); MONOCYTES # (AUTO) 0.5 K/uL (0.1-1.0); MONOCYTES % (AUTO) 8.3 % (2.0-9.0); NEUTROPHILS # (AUTO) 2.9 K/uL (1.8-7.7); PLATELET COUNT (AUTO) 266 K/uL (150-450); RED BLOOD CELL COUNT(AUTO) 5.76 MIL/uL (4.50-5.90)
[2018-02-21 09:28] LABS: HEMOGLOBIN A1C 11.6 % (4.5-6.2)
[2018-02-21 09:42] LABS: ANION GAP 11 mmol/L (8-16); CALCIUM, TOTAL 9.1 mg/dL (8.8-10.5); CARBON DIOXIDE 23 mmol/L (22-29); CHLORIDE 101 mmol/L (98-107); CHOL/HDL RATIO 3.1 (4.2-7.3); CHOLESTEROL 89 mg/dL (131-200); GLOMERULAR FILTR. RATE CALC > 60 mL/min (>60); GLUCOSE,RANDOM 317 mg/dL (70-110); HDL CHOLESTEROL 29 mg/dL (40-60); LDL CHOL (CALC.) 36 mg/dL (0-130); PHOSPHORUS 3.6 mg/dL (2.5-4.9); POTASSIUM 4.2 mmol/L (3.5-5.1); SODIUM SERUM 135 mmol/L (136-145); TRIGLYCERIDES 119 mg/dL (15-150); UREA NITROGEN, BLOOD 22 mg/dL (7-18)
[2018-02-21 12:29] LABS: GLUCOMETER DEV NAME(LOC) BV3N5; GLUCOSE,POINT OF CARE 294 MG/DL (70-110)
[2018-02-21 16:00] VITALS: BP 127/68
[2018-02-21 17:28] LABS: GLUCOMETER DEV NAME(LOC) BV3N5; GLUCOSE,POINT OF CARE 237 MG/DL (70-110)
[2018-02-21] MEDS: OLANZapine 10 MG RAPDIS TABLET PO SCH (20:59)
[2018-02-21] MEDS: DIVALPROEX SODIUM 500 MG ER TABLET PO SCH (20:59)
[2018-02-21 21:33] LABS: GLUCOMETER DEV NAME(LOC) BV3N5; GLUCOSE,POINT OF CARE 351 MG/DL (70-110)
[2018-02-22 06:13] LABS: GLUCOMETER DEV NAME(LOC) BV3N5; GLUCOSE,POINT OF CARE 222 MG/DL (70-110)
[2018-02-22] MEDS: MetFORMIN HCL 500 MG TABLET PO SCH ×2 (06:28→16:42)
[2018-02-22] MEDS: INSULIN LISPRO 100 UNITS/ML SQ PRN (06:29)
[2018-02-22 06:35] VITALS: BP 133/72
[2018-02-22 08:25] VITALS: BP 136/70
[2018-02-22] MEDS: NALTREXONE HCL 50 MG TABLET PO SCH (08:31)
[2018-02-22] MEDS: FOLIC ACID 1 MG TABLET PO SCH (08:31)
[2018-02-22] MEDS: MULTIVITAMINS WITH MINERALS, THERAPEUTIC TABLET PO SCH (08:31)
[2018-02-22] MEDS: THIAMINE HCL 100 MG TABLET PO SCH ×2 (08:31→16:42)
[2018-02-22] MEDS: CHOLECALCIFEROL (VIT D3) 1,000 UNITS TABLET PO SCH (08:31)
[2018-02-22 12:23] LABS: GLUCOMETER DEV NAME(LOC) BV3N5; GLUCOSE,POINT OF CARE 290 MG/DL (70-110)
[2018-02-22 16:00] VITALS: BP 119/69
[2018-02-22] MEDS ORDERED: NALT50TA PO (16:43)
[2018-02-22] MEDS ORDERED: OLAN10TA22 PO (16:43)
[2018-02-22] MEDS ORDERED: DIVA500T52 PO (16:43)
[2018-02-22 17:08] LABS: GLUCOMETER DEV NAME(LOC) BV3N5; GLUCOSE,POINT OF CARE 211 MG/DL (70-110)
[2018-02-22] MEDS: DIVALPROEX SODIUM 500 MG ER TABLET PO SCH (20:47)
[2018-02-22] MEDS: OLANZapine 10 MG RAPDIS TABLET PO SCH (20:48)
[2018-02-22 20:59] LABS: GLUCOMETER DEV NAME(LOC) BV3N5; GLUCOSE,POINT OF CARE 333 MG/DL (70-110)
[2018-02-23 06:19] LABS: GLUCOMETER DEV NAME(LOC) BV3N5; GLUCOSE,POINT OF CARE 171 MG/DL (70-110)
[2018-02-23] MEDS: INSULIN LISPRO 100 UNITS/ML SQ PRN ×2 (06:20→16:38)
[2018-02-23] MEDS: MetFORMIN HCL 500 MG TABLET PO SCH ×2 (06:20→16:32)
[2018-02-23 06:31] VITALS: BP 129/68
[2018-02-23 07:50] VITALS: BP 122/78
[2018-02-23] MEDS: THIAMINE HCL 100 MG TABLET PO SCH ×2 (08:38→16:32)
[2018-02-23] MEDS: CHOLECALCIFEROL (VIT D3) 1,000 UNITS TABLET PO SCH (08:38)
[2018-02-23] MEDS: MULTIVITAMINS WITH MINERALS, THERAPEUTIC TABLET PO SCH (08:38)
[2018-02-23] MEDS: NALTREXONE HCL 50 MG TABLET PO SCH (08:38)
[2018-02-23] MEDS: FOLIC ACID 1 MG TABLET PO SCH (08:38)
[2018-02-23 11:43] LABS: GLUCOMETER DEV NAME(LOC) BV3N5; GLUCOSE,POINT OF CARE 311 MG/DL (70-110)
[2018-02-23 13:04] VITALS: BP 122/78
[2018-02-23 16:24] VITALS: BP 124/73
[2018-02-23 16:43] LABS: GLUCOMETER DEV NAME(LOC) BV3N5; GLUCOSE,POINT OF CARE 204 MG/DL (70-110)
[2018-02-23] MEDS: DIVALPROEX SODIUM 500 MG ER TABLET PO SCH (20:38)
[2018-02-23] MEDS: OLANZapine 10 MG RAPDIS TABLET PO SCH (20:38)
[2018-02-23 20:48] LABS: GLUCOMETER DEV NAME(LOC) BV3N5; GLUCOSE,POINT OF CARE 253 MG/DL (70-110)
[2018-02-24 06:23] LABS: GLUCOMETER DEV NAME(LOC) BV3N5; GLUCOSE,POINT OF CARE 161 MG/DL (70-110)
[2018-02-24] MEDS: MetFORMIN HCL 500 MG TABLET PO SCH ×2 (06:28→17:05)
[2018-02-24] MEDS: INSULIN LISPRO 100 UNITS/ML SQ PRN (06:28)
[2018-02-24 06:29] VITALS: BP 127/84
[2018-02-24 08:42] VITALS: BP 132/78
[2018-02-24] MEDS: NALTREXONE HCL 50 MG TABLET PO SCH (09:54)
[2018-02-24] MEDS: CHOLECALCIFEROL (VIT D3) 1,000 UNITS TABLET PO SCH (09:54)
[2018-02-24] MEDS: FOLIC ACID 1 MG TABLET PO SCH (09:54)
[2018-02-24] MEDS: MULTIVITAMINS WITH MINERALS, THERAPEUTIC TABLET PO SCH (09:54)
[2018-02-24] MEDS: THIAMINE HCL 100 MG TABLET PO SCH ×2 (09:54→17:05)
[2018-02-24 11:23] LABS: GLUCOMETER DEV NAME(LOC) BV3N5; GLUCOSE,POINT OF CARE 246 MG/DL (70-110)
[2018-02-24 15:59] LABS: GLUCOMETER DEV NAME(LOC) BV3N5; GLUCOSE,POINT OF CARE 174 MG/DL (70-110)
[2018-02-24 16:13] VITALS: BP 109/68
[2018-02-24] MEDS: OLANZapine 10 MG RAPDIS TABLET PO SCH (20:49)
[2018-02-24] MEDS: DIVALPROEX SODIUM 500 MG ER TABLET PO SCH (20:49)
[2018-02-24 22:13] LABS: GLUCOMETER DEV NAME(LOC) BV3N5; GLUCOSE,POINT OF CARE 224 MG/DL (70-110)
[2018-02-25 06:21] VITALS: BP 112/68
[2018-02-25 06:35] LABS: GLUCOMETER DEV NAME(LOC) BV3N5; GLUCOSE,POINT OF CARE 208 MG/DL (70-110)
[2018-02-25] MEDS: MetFORMIN HCL 500 MG TABLET PO SCH ×2 (06:36→16:53)
[2018-02-25] MEDS: INSULIN LISPRO 100 UNITS/ML SQ PRN (06:36)
[2018-02-25 08:08] VITALS: BP 124/88
[2018-02-25] MEDS: CHOLECALCIFEROL (VIT D3) 1,000 UNITS TABLET PO SCH (08:34)
[2018-02-25] MEDS: MULTIVITAMINS WITH MINERALS, THERAPEUTIC TABLET PO SCH (08:35)
[2018-02-25] MEDS: THIAMINE HCL 100 MG TABLET PO SCH ×2 (08:35→16:54)
[2018-02-25] MEDS: FOLIC ACID 1 MG TABLET PO SCH (08:35)
[2018-02-25] MEDS: NALTREXONE HCL 50 MG TABLET PO SCH (08:35)
[2018-02-25 11:44] LABS: GLUCOMETER DEV NAME(LOC) BV3N5; GLUCOSE,POINT OF CARE 196 MG/DL (70-110)
[2018-02-25 16:08] VITALS: BP 123/72
[2018-02-25 17:08] LABS: GLUCOMETER DEV NAME(LOC) BV3N5; GLUCOSE,POINT OF CARE 247 MG/DL (70-110)
[2018-02-25] MEDS: OLANZapine 10 MG RAPDIS TABLET PO SCH (21:05)
[2018-02-25] MEDS: DIVALPROEX SODIUM 500 MG ER TABLET PO SCH (21:05)
[2018-02-25 21:38] LABS: GLUCOMETER DEV NAME(LOC) BV3N5; GLUCOSE,POINT OF CARE 208 MG/DL (70-110)
[2018-02-26 03:13] VITALS: BP 132/74
[2018-02-26] MEDS: INSULIN LISPRO 100 UNITS/ML SQ PRN (06:29)
[2018-02-26] MEDS: MetFORMIN HCL 500 MG TABLET PO SCH ×2 (06:29→16:52)
[2018-02-26 08:13] VITALS: BP 108/68
[2018-02-26] MEDS: NALTREXONE HCL 50 MG TABLET PO SCH (08:47)
[2018-02-26] MEDS: FOLIC ACID 1 MG TABLET PO SCH (08:47)
[2018-02-26] MEDS: CHOLECALCIFEROL (VIT D3) 1,000 UNITS TABLET PO SCH (08:48)
[2018-02-26] MEDS: THIAMINE HCL 100 MG TABLET PO SCH ×2 (08:48→16:52)
[2018-02-26] MEDS: MULTIVITAMINS WITH MINERALS, THERAPEUTIC TABLET PO SCH (08:48)
[2018-02-26 14:55] LABS: GLUCOMETER DEV NAME(LOC) BV3N5; GLUCOSE,POINT OF CARE 146 MG/DL (70-110)
[2018-02-26 14:55] LABS: GLUCOMETER DEV NAME(LOC) BV3N5; GLUCOSE,POINT OF CARE 212 MG/DL (70-110)
[2018-02-26 16:00] VITALS: BP 121/75
[2018-02-26 17:18] LABS: GLUCOMETER DEV NAME(LOC) BV3N5; GLUCOSE,POINT OF CARE 164 MG/DL (70-110)
[2018-02-26 20:29] LABS: GLUCOMETER DEV NAME(LOC) BV3N5; GLUCOSE,POINT OF CARE 214 MG/DL (70-110)
[2018-02-26] MEDS: DIVALPROEX SODIUM 500 MG ER TABLET PO SCH (20:36)
[2018-02-26] MEDS: OLANZapine 10 MG RAPDIS TABLET PO SCH (20:36)
[2018-02-27 05:20] VITALS: BP 118/71
[2018-02-27] MEDS: MetFORMIN HCL 500 MG TABLET PO SCH ×2 (06:00→16:42)
[2018-02-27 06:19] LABS: GLUCOMETER DEV NAME(LOC) BV3N5; GLUCOSE,POINT OF CARE 119 MG/DL (70-110)
[2018-02-27 08:25] VITALS: BP 111/65
[2018-02-27] MEDS: MULTIVITAMINS WITH MINERALS, THERAPEUTIC TABLET PO SCH (08:44)
[2018-02-27] MEDS: CHOLECALCIFEROL (VIT D3) 1,000 UNITS TABLET PO SCH (08:44)
[2018-02-27] MEDS: THIAMINE HCL 100 MG TABLET PO SCH ×2 (08:44→16:42)
[2018-02-27] MEDS: FOLIC ACID 1 MG TABLET PO SCH (08:44)
[2018-02-27] MEDS: NALTREXONE HCL 50 MG TABLET PO SCH (08:45)
[2018-02-27 11:53] LABS: GLUCOMETER DEV NAME(LOC) BV3N5; GLUCOSE,POINT OF CARE 204 MG/DL (70-110)
[2018-02-27 16:00] VITALS: BP 131/73
[2018-02-27 16:53] LABS: GLUCOMETER DEV NAME(LOC) BV3N5; GLUCOSE,POINT OF CARE 211 MG/DL (70-110)
[2018-02-27] MEDS: DIVALPROEX SODIUM 500 MG ER TABLET PO SCH (20:45)
[2018-02-27] MEDS: OLANZapine 10 MG RAPDIS TABLET PO SCH (20:45)
[2018-02-27 20:58] LABS: GLUCOMETER DEV NAME(LOC) BV3N5; GLUCOSE,POINT OF CARE 247 MG/DL (70-110)
[2018-02-28 06:24] LABS: GLUCOMETER DEV NAME(LOC) BV3N5; GLUCOSE,POINT OF CARE 173 MG/DL (70-110)
[2018-02-28 06:25] VITALS: BP 120/84
[2018-02-28] MEDS: MetFORMIN HCL 500 MG TABLET PO SCH ×2 (06:59→16:32)
[2018-02-28 08:07] VITALS: BP 118/67
[2018-02-28 08:53] LABS: ANION GAP 11 mmol/L (8-16); CALCIUM, TOTAL 9.2 mg/dL (8.8-10.5); CARBON DIOXIDE 26 mmol/L (22-29); CHLORIDE 102 mmol/L (98-107); CREATININE 0.81 mg/dL (0.60-1.30); GLOMERULAR FILTR. RATE CALC > 60 mL/min (>60); GLUCOSE,RANDOM 156 mg/dL (70-110); POTASSIUM 4.4 mmol/L (3.5-5.1); SODIUM SERUM 139 mmol/L (136-145); UREA NITROGEN, BLOOD 14 mg/dL (7-18)
[2018-02-28] MEDS: FOLIC ACID 1 MG TABLET PO SCH (08:53)
[2018-02-28] MEDS: MULTIVITAMINS WITH MINERALS, THERAPEUTIC TABLET PO SCH (08:53)
[2018-02-28] MEDS: CHOLECALCIFEROL (VIT D3) 1,000 UNITS TABLET PO SCH (08:53)
[2018-02-28] MEDS: THIAMINE HCL 100 MG TABLET PO SCH ×2 (08:53→16:32)
[2018-02-28] MEDS: NALTREXONE HCL 50 MG TABLET PO SCH (08:53)
[2018-02-28 11:54] LABS: GLUCOMETER DEV NAME(LOC) BV3N5; GLUCOSE,POINT OF CARE 194 MG/DL (70-110)
[2018-02-28 16:31] VITALS: BP 134/68
[2018-02-28 18:38] LABS: GLUCOMETER DEV NAME(LOC) BV3N5; GLUCOSE,POINT OF CARE 231 MG/DL (70-110)
[2018-02-28] MEDS: DIVALPROEX SODIUM 500 MG ER TABLET PO SCH (20:40)
[2018-02-28] MEDS: OLANZapine 10 MG RAPDIS TABLET PO SCH (20:40)
[2018-02-28 20:53] LABS: GLUCOMETER DEV NAME(LOC) BV3N5; GLUCOSE,POINT OF CARE 234 MG/DL (70-110)
[2018-03-01 06:17] VITALS: BP 113/73
[2018-03-01 06:35] LABS: GLUCOMETER DEV NAME(LOC) BV3N5; GLUCOSE,POINT OF CARE 187 MG/DL (70-110)
[2018-03-01] MEDS: MetFORMIN HCL 500 MG TABLET PO SCH ×2 (06:48→16:13)
[2018-03-01] MEDS: INSULIN LISPRO 100 UNITS/ML SQ PRN (06:48)
[2018-03-01 08:00] VITALS: BP 117/69
[2018-03-01] MEDS: CHOLECALCIFEROL (VIT D3) 1,000 UNITS TABLET PO SCH (09:20)
[2018-03-01] MEDS: MULTIVITAMINS WITH MINERALS, THERAPEUTIC TABLET PO SCH (09:20)
[2018-03-01] MEDS: FOLIC ACID 1 MG TABLET PO SCH (09:21)
[2018-03-01] MEDS: NALTREXONE HCL 50 MG TABLET PO SCH (09:21)
[2018-03-01 11:34] LABS: GLUCOMETER DEV NAME(LOC) BV3N5; GLUCOSE,POINT OF CARE 199 MG/DL (70-110)
[2018-03-01 16:00] VITALS: BP 114/64
[2018-03-01 18:03] LABS: GLUCOMETER DEV NAME(LOC) BV3N5; GLUCOSE,POINT OF CARE 132 MG/DL (70-110)
[2018-03-01] MEDS: DIVALPROEX SODIUM 500 MG ER TABLET PO SCH (20:08)
[2018-03-01] MEDS: OLANZapine 10 MG RAPDIS TABLET PO SCH (20:08)
[2018-03-01 20:19] LABS: GLUCOMETER DEV NAME(LOC) BV3N5; GLUCOSE,POINT OF CARE 204 MG/DL (70-110)
[2018-03-02 06:14] LABS: GLUCOMETER DEV NAME(LOC) BV3N5; GLUCOSE,POINT OF CARE 152 MG/DL (70-110)
[2018-03-02 06:25] VITALS: BP 115/68
[2018-03-02] MEDS: MetFORMIN HCL 500 MG TABLET PO SCH ×2 (06:32→16:49)
[2018-03-02] MEDS: INSULIN LISPRO 100 UNITS/ML SQ PRN (06:33)
[2018-03-02 08:00] VITALS: BP 111/70
[2018-03-02] MEDS: CHOLECALCIFEROL (VIT D3) 1,000 UNITS TABLET PO SCH (08:17)
[2018-03-02] MEDS: MULTIVITAMINS WITH MINERALS, THERAPEUTIC TABLET PO SCH (08:17)
[2018-03-02] MEDS: NALTREXONE HCL 50 MG TABLET PO SCH (08:17)
[2018-03-02 11:59] LABS: GLUCOMETER DEV NAME(LOC) BV3N5; GLUCOSE,POINT OF CARE 197 MG/DL (70-110)
[2018-03-02 16:18] VITALS: BP 110/69
[2018-03-02 17:09] LABS: GLUCOMETER DEV NAME(LOC) BV3N5; GLUCOSE,POINT OF CARE 259 MG/DL (70-110)
[2018-03-02] MEDS: OLANZapine 10 MG RAPDIS TABLET PO SCH (20:51)
[2018-03-02] MEDS: DIVALPROEX SODIUM 500 MG ER TABLET PO SCH (20:51)
[2018-03-02 21:39] LABS: GLUCOMETER DEV NAME(LOC) BV3N5; GLUCOSE,POINT OF CARE 207 MG/DL (70-110)
[2018-03-03 06:04] VITALS: BP 112/72
[2018-03-03 06:14] LABS: GLUCOMETER DEV NAME(LOC) BV3N5; GLUCOSE,POINT OF CARE 145 MG/DL (70-110)
[2018-03-03] MEDS: MetFORMIN HCL 500 MG TABLET PO SCH ×2 (06:16→16:41)
[2018-03-03] MEDS: INSULIN LISPRO 100 UNITS/ML SQ PRN (06:17)
[2018-03-03 08:12] VITALS: BP 114/62
[2018-03-03] MEDS: MULTIVITAMINS WITH MINERALS, THERAPEUTIC TABLET PO SCH (09:00)
[2018-03-03] MEDS: NALTREXONE HCL 50 MG TABLET PO SCH (09:00)
[2018-03-03] MEDS: CHOLECALCIFEROL (VIT D3) 1,000 UNITS TABLET PO SCH (09:00)
[2018-03-03 12:29] LABS: GLUCOMETER DEV NAME(LOC) BV3N5; GLUCOSE,POINT OF CARE 288 MG/DL (70-110)
[2018-03-03 16:09] VITALS: BP 114/62
[2018-03-03 17:04] LABS: GLUCOMETER DEV NAME(LOC) BV3N5; GLUCOSE,POINT OF CARE 210 MG/DL (70-110)
[2018-03-03] MEDS: OLANZapine 10 MG RAPDIS TABLET PO SCH (20:50)
[2018-03-03] MEDS: DIVALPROEX SODIUM 500 MG ER TABLET PO SCH (20:50)
[2018-03-03 22:08] LABS: GLUCOMETER DEV NAME(LOC) BV3N5; GLUCOSE,POINT OF CARE 244 MG/DL (70-110)
[2018-03-04 05:27] VITALS: BP 124/68
[2018-03-04 06:44] LABS: GLUCOMETER DEV NAME(LOC) BV3N5; GLUCOSE,POINT OF CARE 134 MG/DL (70-110)
[2018-03-04] MEDS: MetFORMIN HCL 500 MG TABLET PO SCH ×2 (06:44→16:54)
[2018-03-04 08:07] VITALS: BP 118/64
[2018-03-04] MEDS: CHOLECALCIFEROL (VIT D3) 1,000 UNITS TABLET PO SCH (08:59)
[2018-03-04] MEDS: NALTREXONE HCL 50 MG TABLET PO SCH (08:59)
[2018-03-04] MEDS: MULTIVITAMINS WITH MINERALS, THERAPEUTIC TABLET PO SCH (08:59)
[2018-03-04 11:49] LABS: GLUCOMETER DEV NAME(LOC) BV3N5; GLUCOSE,POINT OF CARE 208 MG/DL (70-110)
[2018-03-04 16:07] VITALS: BP 115/64
[2018-03-04] MEDS: DIVALPROEX SODIUM 500 MG ER TABLET PO SCH (20:46)
[2018-03-04] MEDS: OLANZapine 10 MG RAPDIS TABLET PO SCH (20:46)
[2018-03-04 20:48] LABS: GLUCOMETER DEV NAME(LOC) BV3N5; GLUCOSE,POINT OF CARE 243 MG/DL (70-110)
[2018-03-05 00:17] VITALS: BP 115/61
[2018-03-05 06:23] LABS: GLUCOMETER DEV NAME(LOC) BV3N5; GLUCOSE,POINT OF CARE 129 MG/DL (70-110)
[2018-03-05] MEDS: MetFORMIN HCL 500 MG TABLET PO SCH ×2 (06:34→16:45)
[2018-03-05 08:11] VITALS: BP 116/68
[2018-03-05] MEDS: MULTIVITAMINS WITH MINERALS, THERAPEUTIC TABLET PO SCH (08:51)
[2018-03-05] MEDS: NALTREXONE HCL 50 MG TABLET PO SCH (08:51)
[2018-03-05] MEDS: CHOLECALCIFEROL (VIT D3) 1,000 UNITS TABLET PO SCH (08:51)
[2018-03-05 11:48] LABS: GLUCOMETER DEV NAME(LOC) BV3N5; GLUCOSE,POINT OF CARE 178 MG/DL (70-110)
[2018-03-05 16:42] VITALS: BP 111/60
[2018-03-05 18:28] LABS: GLUCOMETER DEV NAME(LOC) BV3N5; GLUCOSE,POINT OF CARE 173 MG/DL (70-110)
[2018-03-05] MEDS: DIVALPROEX SODIUM 500 MG ER TABLET PO SCH (20:11)
[2018-03-05] MEDS: OLANZapine 10 MG RAPDIS TABLET PO SCH (20:11)
[2018-03-05 20:53] LABS: GLUCOMETER DEV NAME(LOC) BV2S 2; GLUCOSE,POINT OF CARE 178 MG/DL (70-110)
[2018-03-06 02:39] VITALS: BP 124/80
[2018-03-06 07:08] LABS: GLUCOMETER DEV NAME(LOC) BV2S 2; GLUCOSE,POINT OF CARE 156 MG/DL (70-110)
[2018-03-06] MEDS: MetFORMIN HCL 500 MG TABLET PO SCH ×2 (07:13→16:55)
[2018-03-06] MEDS: INSULIN LISPRO 100 UNITS/ML SQ PRN (07:14)
[2018-03-06 08:29] VITALS: BP 109/70
[2018-03-06] MEDS: NALTREXONE HCL 50 MG TABLET PO SCH (08:52)
[2018-03-06] MEDS: MULTIVITAMINS WITH MINERALS, THERAPEUTIC TABLET PO SCH (08:52)
[2018-03-06] MEDS: CHOLECALCIFEROL (VIT D3) 1,000 UNITS TABLET PO SCH (08:52)
[2018-03-06 11:44] LABS: GLUCOMETER DEV NAME(LOC) BV2S 2; GLUCOSE,POINT OF CARE 188 MG/DL (70-110)
[2018-03-06 16:54] LABS: GLUCOMETER DEV NAME(LOC) BV2S 2; GLUCOSE,POINT OF CARE 165 MG/DL (70-110)
[2018-03-06 18:02] VITALS: BP 102/60
[2018-03-06] MEDS: OLANZapine 10 MG RAPDIS TABLET PO SCH (21:00)
[2018-03-06] MEDS: DIVALPROEX SODIUM 500 MG ER TABLET PO SCH (21:00)
[2018-03-06 21:34] LABS: GLUCOMETER DEV NAME(LOC) BV2S 2; GLUCOSE,POINT OF CARE 176 MG/DL (70-110)
[2018-03-07 02:14] VITALS: BP 121/66
[2018-03-07 06:14] LABS: GLUCOMETER DEV NAME(LOC) BV2S 2; GLUCOSE,POINT OF CARE 116 MG/DL (70-110)
[2018-03-07] MEDS: MetFORMIN HCL 500 MG TABLET PO SCH ×2 (06:34→17:00)
[2018-03-07 08:12] VITALS: BP 112/74
[2018-03-07] MEDS: NALTREXONE HCL 50 MG TABLET PO SCH (09:20)
[2018-03-07] MEDS: MULTIVITAMINS WITH MINERALS, THERAPEUTIC TABLET PO SCH (09:20)
[2018-03-07] MEDS: CHOLECALCIFEROL (VIT D3) 1,000 UNITS TABLET PO SCH (09:20)
[2018-03-07] MEDS: INSULIN LISPRO 100 UNITS/ML SQ PRN ×2 (11:47→11:54)
[2018-03-07 11:58] LABS: GLUCOMETER DEV NAME(LOC) BV2S 2; GLUCOSE,POINT OF CARE 201 MG/DL (70-110)
[2018-03-07 16:38] LABS: GLUCOMETER DEV NAME(LOC) BV2S 2; GLUCOSE,POINT OF CARE 227 MG/DL (70-110)
[2018-03-07 16:45] VITALS: BP 107/60
[2018-03-07] MEDS: OLANZapine 10 MG RAPDIS TABLET PO SCH (20:14)
[2018-03-07] MEDS: DIVALPROEX SODIUM 500 MG ER TABLET PO SCH (20:14)
[2018-03-07 20:28] LABS: GLUCOMETER DEV NAME(LOC) BV2S 2; GLUCOSE,POINT OF CARE 230 MG/DL (70-110)
[2018-03-08 01:09] VITALS: BP 122/75
[2018-03-08] MEDS ORDERED: METF500T6 PO (04:52)
[2018-03-08] MEDS ORDERED: DIVA500T52 PO (04:52)
[2018-03-08] MEDS ORDERED: OLAN10TA20 PO (04:52)
[2018-03-08] MEDS ORDERED: NALT50TA6 PO (04:52)
[2018-03-08 06:19] LABS: GLUCOMETER DEV NAME(LOC) BV2S 2; GLUCOSE,POINT OF CARE 194 MG/DL (70-110)
[2018-03-08] MEDS: MetFORMIN HCL 500 MG TABLET PO SCH ×2 (07:05→17:04)
[2018-03-08] MEDS ORDERED: OLAN10TA6 PO (07:53)
[2018-03-08 08:31] VITALS: BP 117/72
[2018-03-08] MEDS: CHOLECALCIFEROL (VIT D3) 1,000 UNITS TABLET PO SCH (09:18)
[2018-03-08] MEDS: NALTREXONE HCL 50 MG TABLET PO SCH (09:18)
[2018-03-08] MEDS: MULTIVITAMINS WITH MINERALS, THERAPEUTIC TABLET PO SCH (09:18)
[2018-03-08 11:28] LABS: GLUCOMETER DEV NAME(LOC) BV2S 2; GLUCOSE,POINT OF CARE 273 MG/DL (70-110)
[2018-03-08] MEDS: INSULIN LISPRO 100 UNITS/ML SQ PRN (12:59)
[2018-03-08 16:04] VITALS: BP 113/63
[2018-03-08 16:54] LABS: GLUCOMETER DEV NAME(LOC) BV2S 2; GLUCOSE,POINT OF CARE 221 MG/DL (70-110)
[2018-03-08] MEDS: OLANZapine 10 MG RAPDIS TABLET PO SCH (20:38)
[2018-03-08] MEDS: DIVALPROEX SODIUM 500 MG ER TABLET PO SCH (20:38)
[2018-03-08 21:34] LABS: GLUCOMETER DEV NAME(LOC) BV2S 2; GLUCOSE,POINT OF CARE 192 MG/DL (70-110)
[2018-03-09 01:47] VITALS: BP 121/78
[2018-03-09 06:28] LABS: GLUCOMETER DEV NAME(LOC) BV2S 2; GLUCOSE,POINT OF CARE 121 MG/DL (70-110)
[2018-03-09] MEDS: MetFORMIN HCL 500 MG TABLET PO SCH ×2 (06:49→16:30)
[2018-03-09] MEDS: MULTIVITAMINS WITH MINERALS, THERAPEUTIC TABLET PO SCH (08:27)
[2018-03-09] MEDS: NALTREXONE HCL 50 MG TABLET PO SCH (08:27)
[2018-03-09] MEDS: CHOLECALCIFEROL (VIT D3) 1,000 UNITS TABLET PO SCH (08:27)
[2018-03-09 08:29] VITALS: BP 115/66
[2018-03-09 10:53] LABS: GLUCOMETER DEV NAME(LOC) BV2S 2; GLUCOSE,POINT OF CARE 242 MG/DL (70-110)
[2018-03-09 16:04] VITALS: BP 115/66
[2018-03-09] MEDS: DIVALPROEX SODIUM 500 MG ER TABLET PO SCH (20:23)
[2018-03-09] MEDS: OLANZapine 10 MG RAPDIS TABLET PO SCH (20:23)
[2018-03-09 20:38] LABS: GLUCOMETER DEV NAME(LOC) BV2S 2; GLUCOSE,POINT OF CARE 151 MG/DL (70-110)
[2018-03-09 20:38] LABS: GLUCOMETER DEV NAME(LOC) BV2S 2; GLUCOSE,POINT OF CARE 256 MG/DL (70-110)
[2018-03-10] VITALS: BP 120/76
[2018-03-10] MEDS: MetFORMIN HCL 500 MG TABLET PO SCH ×2 (07:01→16:30)
[2018-03-10 07:18] LABS: GLUCOMETER DEV NAME(LOC) BV2S 2; GLUCOSE,POINT OF CARE 171 MG/DL (70-110)
[2018-03-10 08:07] VITALS: BP 108/71
[2018-03-10] MEDS: MULTIVITAMINS WITH MINERALS, THERAPEUTIC TABLET PO SCH (08:59)
[2018-03-10] MEDS: CHOLECALCIFEROL (VIT D3) 1,000 UNITS TABLET PO SCH (08:59)
[2018-03-10] MEDS: NALTREXONE HCL 50 MG TABLET PO SCH (09:00)
[2018-03-10 11:13] LABS: GLUCOMETER DEV NAME(LOC) BV2S 2; GLUCOSE,POINT OF CARE 210 MG/DL (70-110)
[2018-03-10 16:03] VITALS: BP 118/70
[2018-03-10 16:29] LABS: GLUCOMETER DEV NAME(LOC) BV2S 2; GLUCOSE,POINT OF CARE 134 MG/DL (70-110)
[2018-03-10] MEDS: OLANZapine 10 MG RAPDIS TABLET PO SCH (20:21)
[2018-03-10] MEDS: DIVALPROEX SODIUM 500 MG ER TABLET PO SCH (20:21)
[2018-03-10 20:43] LABS: GLUCOMETER DEV NAME(LOC) BV2S 2; GLUCOSE,POINT OF CARE 161 MG/DL (70-110)
[2018-03-10] MEDS: INSULIN LISPRO 100 UNITS/ML SQ PRN (21:31)
[2018-03-11 05:45] VITALS: BP 123/59
[2018-03-11] MEDS: MetFORMIN HCL 500 MG TABLET PO SCH ×2 (07:06→17:03)
[2018-03-11 08:22] VITALS: BP 108/63
[2018-03-11] MEDS: MULTIVITAMINS WITH MINERALS, THERAPEUTIC TABLET PO SCH (08:28)
[2018-03-11] MEDS: CHOLECALCIFEROL (VIT D3) 1,000 UNITS TABLET PO SCH (08:28)
[2018-03-11] MEDS: NALTREXONE HCL 50 MG TABLET PO SCH (08:28)
[2018-03-11 11:03] LABS: GLUCOMETER DEV NAME(LOC) BV2S 2; GLUCOSE,POINT OF CARE 198 MG/DL (70-110)
[2018-03-11 16:10] VITALS: BP 110/68
[2018-03-11 16:39] LABS: GLUCOMETER DEV NAME(LOC) BV2S 2; GLUCOSE,POINT OF CARE 188 MG/DL (70-110)
[2018-03-11] MEDS: DIVALPROEX SODIUM 500 MG ER TABLET PO SCH (20:11)
[2018-03-11] MEDS: OLANZapine 10 MG RAPDIS TABLET PO SCH (20:11)
[2018-03-11 20:38] LABS: GLUCOMETER DEV NAME(LOC) BV2S 2; GLUCOSE,POINT OF CARE 249 MG/DL (70-110)
[2018-03-12 00:07] VITALS: BP 125/78
[2018-03-12 06:24] LABS: GLUCOMETER DEV NAME(LOC) BV2S 2; GLUCOSE,POINT OF CARE 153 MG/DL (70-110)
[2018-03-12] MEDS: MetFORMIN HCL 500 MG TABLET PO SCH ×2 (06:41→17:01)
[2018-03-12 08:47] VITALS: BP 122/62
[2018-03-12] MEDS: CHOLECALCIFEROL (VIT D3) 1,000 UNITS TABLET PO SCH (08:50)
[2018-03-12] MEDS: NALTREXONE HCL 50 MG TABLET PO SCH (08:50)
[2018-03-12] MEDS: MULTIVITAMINS WITH MINERALS, THERAPEUTIC TABLET PO SCH (08:50)
[2018-03-12 11:29] LABS: GLUCOMETER DEV NAME(LOC) BV2S 2; GLUCOSE,POINT OF CARE 192 MG/DL (70-110)
[2018-03-12 16:00] VITALS: BP 112/76
[2018-03-12 17:15] LABS: GLUCOMETER DEV NAME(LOC) BV2S 2; GLUCOSE,POINT OF CARE 188 MG/DL (70-110)
[2018-03-12] MEDS: OLANZapine 10 MG RAPDIS TABLET PO SCH (20:23)
[2018-03-12] MEDS: DIVALPROEX SODIUM 500 MG ER TABLET PO SCH (20:24)
[2018-03-12 20:35] LABS: GLUCOMETER DEV NAME(LOC) BV2S 2; GLUCOSE,POINT OF CARE 227 MG/DL (70-110)
[2018-03-13 00:20] VITALS: BP 112/72
[2018-03-13 06:27] LABS: GLUCOMETER DEV NAME(LOC) BV2S 2; GLUCOSE,POINT OF CARE 144 MG/DL (70-110)
[2018-03-13] MEDS: MetFORMIN HCL 500 MG TABLET PO SCH (06:41)
[2018-03-13 09:09] VITALS: BP 110/74
[2018-03-13] MEDS: CHOLECALCIFEROL (VIT D3) 1,000 UNITS TABLET PO SCH (09:21)
[2018-03-13] MEDS: NALTREXONE HCL 50 MG TABLET PO SCH (09:21)
[2018-03-13] MEDS: MULTIVITAMINS WITH MINERALS, THERAPEUTIC TABLET PO SCH (09:21)
[2018-03-13 11:14] LABS: GLUCOMETER DEV NAME(LOC) BV2S 2; GLUCOSE,POINT OF CARE 205 MG/DL (70-110)
== END 2018-03-13 13:22 | disposition home or self-care (01) | DRG 750 ==
LOC: EMS 19:42 → B3A 02-19 17:45 → EMS 02-19 19:42 → B2S 03-05 18:43
PROVIDERS: ADMIT Psychiatry & Neurology Psychiatry; ATTEND Psychiatry & Neurology Psychiatry
DX: F20.0 Paranoid schizophrenia (principal); E11.69 Type 2 diabetes mellitus with other specified complication; F17.210 Nicotine dependence, cigarettes, uncomplicated; J45.909 Unspecified asthma, uncomplicated; Z65.3 Problems related to other legal circumstances; G47.00 Insomnia, unspecified; Z91.14 Patient's other noncompliance with medication regimen; Z91.19 Patient's noncompliance with other medical treatment and regimen; F41.9 Anxiety disorder, unspecified; Z71.6 Tobacco abuse counseling; E55.9 Vitamin D deficiency, unspecified
CPT/HCPCS: 82306; 83036; 83735; 84100; 84443; 87081; 99285; J1815